=== PATIENT | male | born 1975 | race Caucasian/White ===

== ENCOUNTER 2016-06-04 12:14 | Emergency (ER) | payer SELFPAY ==
[~2016-06-04] VITALS: Ht 172.7 cm; Wt 125.1 kg
[2016-06-04 13:23] LABS: CHLORIDE 109 mEq/L (99-109); POTASSIUM 4.4 mEq/L (3.7-5.4); SODIUM 141 mEq/L (136-147)
[2016-06-04 13:24] LABS: MCH 31.2 PG (29.0-34.0); MCHC 33.1 G/DL (30.0-36.0); MCV 94.3 FL (86-99); MEAN PLAT.VOLUME 11.8 uM^3 (9.0-12.4); PLATELET COUNT 244 K/uL (156-360); RBC DIS.WIDTH-CV 12.1 % (11.8-14.6); RBC DIS.WIDTH-SD 42.4 % (39-53); RED BLOOD COUNT 4.77 M/uL (4.00-5.50)
[2016-06-04 13:25] LABS: GLUCOSE 101 mg/dL (70-99)
[2016-06-04 13:26] LABS: ANION GAP 7 MEQ/L (2-14)
[2016-06-04 13:29] LABS: UREA NITROGEN (BUN) 12 mg/dL (9-23)
[2016-06-04 13:35] LABS: GFR ESTIMATE (CALCULATED) > 59 mL/min/
[2016-06-04 15:21] LABS: ADD MIUA? YES; BILIRUBIN NEGATIVE; BLOOD MODERATE; COLOR YELLOW ((YELLOW)); GLUCOSE (STRIP) NEGATIVE; KETONES NEGATIVE; LEUKOCYTES NEGATIVE; NITRITE NEGATIVE; PROTEIN (STRIP) 30; SPECIFIC GRAVITY 1.024 (1.000-1.030)
[2016-06-04 15:26] LABS: BACTERIA NONE SEEN /HPF; EPITHELIAL CELLS RARE /HPF; MUCUS 1+ /LPF; RED BLOOD CELLS TNTC /HPF (0-5); UCUL ADDED? NO; WHITE BLOOD CELLS 0-5 /HPF (0-5)
[2016-06-04] MEDS ORDERED: PYRIDIUM100 MG PO (16:54)
[2016-06-04] MEDS ORDERED: NAPROSYN500 MG PO (16:54)
[2016-06-04 17:07] VITALS: BP 130/74
== END 2016-06-04 17:07 | disposition home or self-care (01) ==
LOC: EME 12:14
DX: R39.15 Urgency of urination (principal); R31.9 Hematuria, unspecified; Z87.442 Personal history of urinary calculi; M54.5 Low back pain; R10.9 Unspecified abdominal pain; R11.0 Nausea; Z72.0 Tobacco use; Z71.6 Tobacco abuse counseling
CPT/HCPCS: 74176; 80048; 81003; 85027; 99281; 99284; J1885